=== PATIENT | male | born 1985 | race Caucasian/White ===

== ENCOUNTER 2023-10-22 09:18 | Outpatient (CLI) | payer OTHER, SELFPAY | END 2023-10-22 09:19 | disposition home or self-care (01) | PROVIDERS: PCP Nurse Practitioner Family; Visit Provider Nurse Practitioner Family | DX: Z00.00 Encounter for general adult medical examination without abnormal findings (principal); Z13.6 Encounter for screening for cardiovascular disorders; Z13.1 Encounter for screening for diabetes mellitus | CPT/HCPCS: 80061; 82947 ==

== ENCOUNTER 2023-12-08 16:04 | Outpatient (CLI) | payer OTHER, SELFPAY | END 2023-12-08 16:05 | disposition home or self-care (01) | PROVIDERS: PCP Nurse Practitioner Family; Visit Provider Nurse Practitioner Family | DX: R53.83 Other fatigue (principal) | CPT/HCPCS: 80053; 82306; 84443; 85025 ==